=== PATIENT | male | born 2000 | race Caucasian/White ===

== ENCOUNTER 2023-03-13 17:59 | Emergency (ER) | payer OTHER, SELFPAY ==
--- NOTE | ~2023-03-13 | XR_ITS ---
EXAMINATION: XR chest 2V Exam Date/Time: 03/13/2023 18:25 CDT HISTORY: CP MID CHEST PAIN WITH HEARTBURN X 1 DAY Comparison: None. RESULT: Lines, tubes, and devices: None. Lungs and pleura: Clear. Cardiomediastinal silhouette: Normal. Other: No acute osseous or upper abdominal finding. IMPRESSION: No acute cardiopulmonary process. Reviewed, dictated and finalized at location K.
[2023-03-13 18:01] VITALS: BP 147/96; PULSE 84; RESP 20; TEMP 37; O2SAT 99
--- NOTE | 2023-03-13 18:26 | ECG_ITS ---
Measurements Intervals [place] Rate: 78 P: 76 VT: 159 QRS: 53 QRSD: 100 T: 40 QT: 345 QTc: 393 Interpretive Statements SINUS RHYTHM POSSIBLE RIGHT VENTRICULAR CONDUCTION DELAY [RSR (QR) IN V1/V2] WITHIN NORMAL LIMITS NO PREVIOUS ECG AVAILABLE FOR COMPARISON Electronically Signed On 03-14-2023 7:05:33 CDT by Jitendra Gruber M.D.
--- NOTE | 2023-03-13 18:40 | ED.GENADULT ---
HPI - General Adult General Chief complaint: Unspecified Stated complaint: heartburn Time Seen by Provider: 03/13/23 18:26 Source: patient and family Mode of arrival: ambulatory Limitations: no limitations History of Present Illness HPI narrative: This is a 22-year-old male that presents to the emergency department for recent chest discomfort. Reports ongoing over the last couple of weeks. Reports an intermittent burning pain in his chest. Associated with nausea. Also reports some exertional dyspnea. Denies any active discomfort currently. His mother brought him in for evaluation. Reports a chronic cough. He recently quit vaping. Denies fevers or lower extremity edema. Related Data Allergies Allergy/AdvReac Type Severity Reaction Status Date / Time No Known Allergies Allergy Verified 03/13/23 18:44 Review of Systems Review of Systems: CONSTITUTIONAL: Denies fever CARDIOVASCULAR: Reports chest pain. Denies palpitations, or edema. RESPIRATORY: Reports cough and dyspnea. GASTROINTESTINAL: Reports nausea. Denies vomiting, or diarrhea. All systems reviewed & are unremarkable except as noted in HPI and below PMFSH Past Medical History Medical History (Updated 03/13/23 @ 19:35 by Patricia Yoder PA-C) No active medical problems Social History Social History (Updated 03/13/23 @ 18:42 by Patricia Yoder PA-C) Smoking status: Former smoker Tobacco type: e-cigarettes/vaping Exam Narrative: GENERAL: Well-appearing, well-nourished, and in no acute distress. HEAD: Normocephalic, atraumatic. EYES: EOMI. CHEST: Clear to auscultation. No respiratory distress. No wheezes rales or rhonchi HEART: Regular rate and rhythm. No murmur heard. Normal peripheral pulses. ABDOMEN: Soft, nontender, nondistended, normal active bowel sounds. EXTREMITIES: Normal range of motion. No edema. SKIN: Warm, dry, no rash. NEURO: No focal deficits. Alert and oriented x3. PSYCH: Normal mood and affect Course Course Emergency Course: Patient and family updated on work-up and agree with plan of care Vital Signs Vital signs: Vital Signs Temperature 98.6 F 03/13/23 18:01 Pulse Rate 84 03/13/23 18:01 Respiratory Rate 20 03/13/23 18:01 Blood Pressure 147/96 H 03/13/23 18:01 Pulse Oximetry 99 03/13/23 18:01 Oxygen Delivery Room Air 03/13/23 18:01 Temperature 98.6 F 03/13/23 18:01 Pulse Rate 73 03/13/23 19:28 Respiratory Rate 20 03/13/23 19:28 Blood Pressure 127/98 H 03/13/23 19:28 Pulse Oximetry 100 03/13/23 19:28 Oxygen Delivery Room Air 03/13/23 18:01 Medical Decision Making MDM Narrative Medical decision making narrative: Patient presents to the emergency department for epigastric pain. Ongoing over the last several weeks. He is afebrile and nontoxic-appearing. His vitals are stable. He has no active pain currently. CBC and metabolic panel without concerning findings. His lipase is not elevated. EKG without acute ST changes and his baseline troponin is negative. D-dimer is not elevated. Chest x-ray without acute cardiopulmonary abnormality. Patient and family updated on work-up and agree with plan of care. He is to follow-up with primary provider. He was given warnings to return to the ER Differential Diagnosis Differential Diagnosis: GERD, gastritis, peptic ulcer disease, PE, ACS, pneumothorax Vital Signs Vital Signs: Vital Signs Temperature 98.6 F 03/13/23 18:01 Pulse Rate 84 03/13/23 18:01 Respiratory Rate 20 03/13/23 18:01 Blood Pressure 147/96 H 03/13/23 18:01 Pulse Oximetry 99 03/13/23 18:01 Oxygen Delivery Room Air 03/13/23 18:01 Temperature 98.6 F 03/13/23 18:01 Pulse Rate 73 03/13/23 19:28 Respiratory Rate 20 03/13/23 19:28 Blood Pressure 127/98 H 03/13/23 19:28 Pulse Oximetry 100 03/13/23 19:28 Oxygen Delivery Room Air 03/13/23 18:01 Lab Data Lab results reviewed: Yes I reviewed the patient's lab res
[2023-03-13 18:43] VITALS: BP 164/101; PULSE 76; RESP 18; O2SAT 97
[2023-03-13 18:53] LABS: Basophils Absolute Auto 0.1 K/mm3 (0.0-0.1); Basophils Percent Auto 0.9 % (0.2-1.2); Eosinophils Absolute Auto 0.4 K/mm3 (0-0.3); Eosinophils Percent Auto 4.8 % (0-4.4); Hematocrit 49.3 % (42.0-52.0); Immature Granulocyte Absolute 0.01 K/mm3 (0.00-0.031); Immature Granulocyte Percent A 0.1 % (0-0.5); Lymphocytes Absolute Auto 3.45 K/mm3 (0.9-3.2); Lymphocytes Percent Auto 43.8 % (18.3-44.2); Mean Corpuscular HGB Conc 34.5 g/dl (32-36); Mean Platelet Volume 10.5 fl (7.4-10.4); Monocytes Absolute Auto 0.6 K/mm3 (0.1-0.6); Monocytes Percent Auto 7.2 % (2.6-8.5); Neutrophils Absolute Auto 3.4 K/mm3 (1.3-6.7); Neutrophils Percent Auto 43.2 % (45.5-73.1); Platelet Count Result 294 k/mm3 (150-375); Red Blood Count 5.48 M/mm3 (4.6-6.20); Red Cell Distribution Width 11.8 % (11.5-14.5); White Blood Count 7.9 K/mm3 (4.5-10.0)
[2023-03-13 18:56] VITALS: BP 130/95; PULSE 78; RESP 24; O2SAT 100
[2023-03-13 19:04] LABS: Alanine Aminotransferase 25 U/L (6-50); Albumin Level 5.1 g/dL (3.5-5.1); Alkaline Phosphatase 56 U/L (38-126); Anion Gap 7 mmol/L (8-16); Aspartate Amino Transferase 28 U/L (17-59); Bilirubin,Total 0.7 mg/dL (0.2-1.3); Blood Urea Nitrogen 19 mg/dL (9-20); Calcium 9.9 mg/dL (8.4-10.2); Carbon Dioxide 30 mmol/L (22-30); Chloride 100 mmol/L (98-107); Estimated CRCL calculation 97 ml/min; Estimated Glomerular Filt Rate > 60; Glucose 96 mg/dL (65-110); Lipase 87 U/L (23-300); Potassium 3.5 mmol/L (3.4-5.0); Sodium 137 mmol/L (137-145)
[2023-03-13 19:14] LABS: Prothrombin Time 13.4 Seconds (11.1-14.7)
[2023-03-13 19:15] LABS: Partial Thromboplastin Time 28.3 SECONDS (22.3-36.8); Troponin I < 0.012 ng/mL (0.000-0.034)
--- NOTE | 2023-03-13 19:17 | PC.NURSE ---
Report received from VALENTINE Grace. Assumed care of patient at this time.
[2023-03-13 19:19] LABS: D Dimer < 0.27 ug/mL (<0.48)
[2023-03-13 19:28] VITALS: BP 127/98; PULSE 73; RESP 20; O2SAT 100
[2023-03-13 19:43] VITALS: BP 131/96; PULSE 69; RESP 17; O2SAT 100
== END 2023-03-13 19:45 | disposition home or self-care (01) ==
PROVIDERS: Emergency Provider Physician Assistant; PCP Pediatrics
DX: R10.13 Epigastric pain (principal); Z87.891 Personal history of nicotine dependence
CPT/HCPCS: 36415; 71046; 80053; 83690; 84443; 84484; 85025; 85380; 85610; 85730; 93005; 99284